=== PATIENT | female | born 1945 | race Caucasian/White ===

== ENCOUNTER 2019-01-13 10:00 | Day surgery (SDC) | payer MEDICARE, OTHER ==
[~2019-01-13 10:00] MED LIST: Lactated Ringers 1,000 ML IV SCH
[2019-01-13] MEDS ORDERED: fentaNYL 100 MCG/2 ML SDV ONE (13:05)
[2019-01-13] MEDS ORDERED: Propofol 200 MG/20 ML SDV ONE (13:05)
[2019-01-13] MEDS ORDERED: Midazolam 1 MG/ML 2 ML SDV ONE (13:05)
[2019-01-13] MEDS ORDERED: Ondansetron 4 MG/2 ML SDV ONE (13:05)
--- NOTE | 2019-01-13 14:00 | PCM.SN ---
- Free Text/Narrative Note: Patient was scheduled for a screening colonoscopy today. She had a pre- oeprative clearance performed by her PCP. When our anesthesiologist listened to her and appreciated a very significant cardiac murmur. She has not had an echo performed recently. They did not feel safe proceeding. Will arrange an appointment with our migration agent for a new echo and pre-operative clearance
== END 2019-01-13 13:45 | disposition home or self-care (01) ==
LOC: MW.SDS 10:00
PROVIDERS: ATTEND Surgery
DX: Z12.11 Encounter for screening for malignant neoplasm of colon (principal); R01.1 Cardiac murmur, unspecified; Z53.8 Procedure and treatment not carried out for other reasons
CPT/HCPCS: J2250; J2405; J2704; J3010; J7120

== ENCOUNTER 2020-04-04 15:40 | Observation (INO) | payer MEDICARE, OTHER ==
[2020-04-04] MEDS: Sodium Chloride 0.9% 1,000 ML IV SCH (16:31)
[2020-04-04] MEDS ORDERED: Rizatriptan Benzoate [Rizatriptan] 10 MG PO PRN (16:58)
--- NOTE | 2020-04-04 16:58 | PCM.HP.2 ---
H&P History of Present Illness - General Date of Service: 04/04/20 Admit Problem/Dx: Admission Diagnosis/Problem Admission Diagnosis/Problem Acute kidney injury - History of Present Illness Initial Comments - Free Text/Narative: Patient is a 75 y/o F with PMH of Cardiomyopathy, CHF, HTN, HLD, DVT. Afib who comes was sent in from her ase certified technician office today due to TIMA. Per patient she was switched from Lasix to torsemide for CHF in January, and today she went to see her ase certified technician and was told she needs to be admitted for abnormal kidney function, her sign maintenance imcreased from 1.5 to 3.0 in last 3 months. Patient denied any chest pain, N/V, dysuria, states she is making good amount of urine. Denied SOB, orthopnea, syncope, fall, abdominal pain, constipation, diarrhea, focal neurological deficits. Patient denied recent contrast administration or NSAIDs use. Her labs were reviewed showed sign maintenance of 3.0 and hypokalemia. Vitals were reassuring. Patient was admitted for further management of TIMA. - Related Data Allergies/Adverse Reactions: Allergies Allergy/AdvReac Type Severity Reaction Status Date / Time amoxicillin Allergy Rash Verified 04/04/20 17:22 Cephalosporins Allergy Rash Verified 04/04/20 17:22 pregabalin [From Lyrica] Allergy Rash Verified 04/04/20 17:22 Home Medications: Home Meds Albuterol [Proventil HFA] 1 - 2 puff INH ASDIRECTED PRN 01/10/19 [History] Apixaban [Eliquis] 5 mg PO BID 01/10/19 [History] Benzonatate [Tessalon Perle] 100 mg PO TID 01/10/19 [History] Gabapentin [Neurontin] 300 mg PO BID 01/10/19 [History] Mirtazapine 30 mg PO BEDTIME 01/10/19 [History] Pantoprazole Sodium 40 mg PO DAILY 01/10/19 [History] Potassium Chloride 10 meq PO DAILY 01/10/19 [History] Pramipexole Di-HCl [Pramipexole Dihydrochloride] 0.25 mg PO TID 01/10/19 [History] Rizatriptan Benzoate [Rizatriptan] 10 mg PO DAILY PRN 01/10/19 [History] atorvaSTATin Calcium [Atorvastatin Calcium] 10 mg PO BEDTIME 01/10/19 [History] fentaNYL [Duragesic] 1 patch TRDERM ASDIRECTED 01/10/19 [History] tiZANidine HCl [Tizanidine HCl] 1 tab PO DAILY 01/10/19 [History] Past Medical History HEENT History: Reports: Other (See Below) Other HEENT History: wears glasses Cardiovascular History: Reports: Afib, Blood Clots/VTE/DVT, Heart Murmur, High Cholesterol, Hypertension Other Cardiovascular History: hx DVT x 2 to 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 (first DVT after childbirth) Respiratory History: Reports: PE Other Respiratory History: occasional anxiety induced SOB -has prescribed inhaler Gastrointestinal History: Reports: GERD Genitourinary History: Reports: None SMOKE TESTER History: Reports: Musculoskeletal History: Reports: Arthritis, Back Pain, Chronic, Neck Pain, Chronic Other Musculoskeletal History: DEVON's to back and neck in [place] on occasion Neurological History: Reports: Migraines Psychiatric History: Reports: None Endocrine/Metabolic History: Reports: None Hematologic History: Reports: Anticoagulation Therapy Immunologic History: Reports: None Oncologic (Cancer) History: Reports: None Dermatologic History: Reports: None - Past Surgical History Head Surgeries/Procedures: Reports: None HEENT Surgical History: Reports: None Cardiovascular Surgical History: Reports: None Respiratory Surgical History: Reports: None GI Surgical History: Reports: None Female Surgical History: Reports: Hysterectomy Endocrine Surgical History: Reports: None Neurological Surgical History: Reports: None Musculoskeletal Surgical History: Reports: None Oncologic Surgical History: Reports: None Dermatological Surgical History: Reports: None H&P Review of Systems - Review of Systems: Review Of Systems: See Below General: Denies: Fever, Chills, Malaise HEENT: Denies: Dysphasia, Ear Pain Pulmonary: Denies: Shortness of Breath, Wheezing Cardiovascular: Denies: Chest Pain, Palpitations Gastrointestinal: Denies: Abdominal Pain, Anorexia, Black Stool, Difficulty Swallowing, Nausea, Vomiting Genitourinary: Denies: Dysuria, Frequency, Burning, Urgency, Retention, Discharge, Flank Pain Musculoskeletal: Denies: Neck Pain, Shoulder Pain, Arm Pain, Back Pain Skin: Denies: Cyanosis, Jaundice, Mottled Psychiatric: Denies: Confusion, Depression, Mood Lability Neurological: Denies: Confusion, Dizziness, Headache Exam - Exam Exam: See Below - Exam General: Alert, Oriented Neck: Supple, Trachea Midline Lungs: Clear to Auscultation, Normal Respiratory Effort Cardiovascular: Regular Rate, Regular Rhythm, Normal S1, Normal S2 GI/Abdominal Exam: Normal Bowel Sounds, Soft, Non-Tender Extremities: Normal Inspection, Normal Range of Motion, Pedal Edema Skin: Warm Neurological: Normal Speech, Normal Tone, Sensation Intact. No: Focal Deficit - Patient Data Lab Results Last 24 hrs: Laboratory Results - last 24 hr 04/04/20 Range/Units 16:00 SARS-CoV-2 RNA (RT-PCR) NEGATIVE (NEGATIVE) Sepsis Event Note - Focused Exam Date Exam was Performed: 04/04/20 Time Exam was Performed: 18:07 - Problem List (1) TIMA (acute kidney injury) SNOMED Code(s): 85807092, 81604201 ICD Code: N17.9 - ACUTE KIDNEY FAILURE, UNSPECIFIED Status: Acute Current Visit: Yes (2) Hypertrophic cardiomyopathy SNOMED Code(s): 698482581 ICD Code: I42.2 - OTHER HYPERTROPHIC CARDIOMYOPATHY Status: Acute Current Visit: Yes (3) HTN (hypertension) SNOMED Code(s): 69305365 ICD Code: I10 - ESSENTIAL (PRIMARY) HYPERTENSION Status: Acute Current Visit: Yes (4) Hyperlipemia SNOMED Code(s): 43649516 ICD Code: E78.5 - HYPERLIPIDEMIA, UNSPECIFIED Status: Acute Current Visit: Yes (5) DVT (deep venous thrombosis) SNOMED Code(s): 745800154 ICD Code: I82.409 - ACUTE EMBOLISM AND THOMBOS UNSP DEEP VN UNSP LOWER EXTREMITY Status: Acute Current Visit: Yes (6) Hypokalemia SNOMED Code(s): 90835358 ICD Code: E87.6 - HYPOKALEMIA Status: Acute Current Visit: Yes Problem List Initiated/Reviewed/Updated: Yes Orders Last 24hrs: Active Orders 24 hr Category Date Time Status Patient Status [ADT] Routine ADT 04/04/20 15:59 Active Oxygen Therapy [RC] PRN Care 04/04/20 15:59 Active Telemetry Monitoring [Cardiac Monitoring] [RC] Q8H Care 04/04/20 16:01 Active VTE/DVT Education [RC] PER UNIT ROUTINE Care 04/04/20 15:59 Active Vital Signs [RC] Q4H Care 04/04/20 15:59 Active Heart Healthy Diet [DIET] Diet 04/04/20 Dinner Active BASIC METABOLIC PANEL,BMP [CHEM] AM Lab 04/05/20 05:11 Ordered Sodium Chloride 0.9% [Normal Saline] 1,000 ml Med 04/04/20 16:00 Active IV Q10H Resuscitation Status Routine Resus Stat 04/04/20 15:59 Ordered Medication Orders Sodium Chloride (Normal Saline) 1,000 mls @ 100 mls/hr IV Q10H [facility] Stop: 04/05/20 11:59 Last Admin: 04/04/20 16:31 Dose: 100 mls/hr Documented by: NUHA Assessment/Plan Comment:: 75 y/o F admitted fro TIMA, Hypokalemia Admit to observation, tele TIMA pre-renal vs progression of CKD Obtain Urine electrolytes Start IV fluids, LR running @ 100 cc/hr, total 2L Replete K Resume home meds as appropriate Hold losartan and Torsemide Avoid nephrotoxic agents Recheck BMP in AM Cardiac diet SCD for DVT ppx
[2020-04-04] MEDS ORDERED: FENTANYL 37.5 MCG/HR TRDERM SCH (17:00)
[2020-04-04] MEDS ORDERED: Potassium Chloride Riders 40 MEQ in Premix Bag 1 BAG IV ONE (18:13)
[2020-04-04] MEDS ORDERED: Acetaminophen 325 MG Tab PO PRN (18:56)
[2020-04-04] MEDS: Gabapentin 300 MG Cap PO SCH (20:43)
[2020-04-04] MEDS: Apixaban 5 MG Tab PO SCH (20:43)
[2020-04-04] MEDS ORDERED: Mirtazapine 30 MG Tab PO SCH (21:00)
[2020-04-04] MEDS ORDERED: atorvaSTATin 10 MG Tab PO SCH (21:00)
[2020-04-04] MEDS: Benzonatate 100 MG Cap PO SCH (22:16)
[2020-04-04] MEDS: Pramipexole 0.25 MG Tab PO SCH (22:16)
[2020-04-05] MEDS: Sodium Chloride 0.9% 1,000 ML IV SCH (02:15)
[2020-04-05] MEDS ORDERED: Glucagon,Human Recombinant 1 MG Vial IVPUSH ONE (05:17)
[2020-04-05 06:24] LABS: CARBON DIOXIDE,CO2 27.7 mmol/L (21.0-32.0); POTASSIUM,K 3.2 mmol/L (3.5-5.1)
[2020-04-05] MEDS: Pramipexole 0.25 MG Tab PO SCH (06:42)
[2020-04-05] MEDS: Benzonatate 100 MG Cap PO SCH (06:42)
[2020-04-05] MEDS ORDERED: Pantoprazole 40 MG Tab.CR PO SCH (07:30)
[2020-04-05] MEDS: Gabapentin 300 MG Cap PO SCH (08:46)
[2020-04-05] MEDS: Apixaban 5 MG Tab PO SCH (08:51)
[2020-04-05] MEDS ORDERED: Potassium Chloride 10% 20 MEQ/15 ML Soln 30 ML UD Cup PO ONE (09:00)
[2020-04-05] MEDS ORDERED: TIZANIDINE HCL 4 MG PO SCH ×2 (09:00→21:00)
--- NOTE | 2020-04-05 09:18 | PCM.DCSUM1 ---
Discharge Summary - Hospital Course Free Text/Narrative:: Patient is a 75 y/o F with PMH of Cardiomyopathy, CHF, HTN, HLD, DVT. Afib who comes was sent in from her softball core molder office today due to TIMA. Per patient she was switched from Lasix to torsemide for CHF in January, and today she went to see her softball core molder and was told she needs to be admitted for abnormal kidney function, her motion picture camera operator imcreased from 1.5 to 3.0 in last 3 months. Patient denied any chest pain, N/V, dysuria, states she is making good amount of urine. Denied SOB, orthopnea, syncope, fall, abdominal pain, constipation, diarrhea, focal neurological deficits. Patient denied recent contrast administration or NSAIDs use. Her labs were reviewed showed motion picture camera operator of 3.0 and hypokalemia. Vitals were reassuring. Patient was admitted for further management of TIMA. Patient was started on iv fluids, her potassium was repleted, her losartan and torsemide were held, telemetry was unremarkable overnight, next am patients creatinine improved to 1.3, electrolytes were repleted, Her losartan was stopped and torsemide was decreased to 20 mg upon her softball core molder recommendations. patient was hemodynamically stable for dc and recommended to fu with her pcp on outpatient basis. - Discharge Data Discharge Date: 04/05/20 Discharge Disposition: Home, Self-Care 01 Condition: Good - Referral to Home Health Primary Care Physician: James David MD - Discharge Diagnosis/Problem(s) (1) TIMA (acute kidney injury) SNOMED Code(s): 91331476, 47737975 ICD Code: N17.9 - ACUTE KIDNEY FAILURE, UNSPECIFIED Status: Acute (2) Hypertrophic cardiomyopathy SNOMED Code(s): 840754886 ICD Code: I42.2 - OTHER HYPERTROPHIC CARDIOMYOPATHY Status: Acute (3) HTN (hypertension) SNOMED Code(s): 14082342 ICD Code: I10 - ESSENTIAL (PRIMARY) HYPERTENSION Status: Acute (4) Hyperlipemia SNOMED Code(s): 55282794 ICD Code: E78.5 - HYPERLIPIDEMIA, UNSPECIFIED Status: Acute (5) DVT (deep venous thrombosis) SNOMED Code(s): 231873472 ICD Code: I82.409 - ACUTE EMBOLISM AND THOMBOS UNSP DEEP VN UNSP LOWER EXTREMITY Status: Acute (6) Hypokalemia SNOMED Code(s): 14778282 ICD Code: E87.6 - HYPOKALEMIA Status: Acute - Discharge Plan Prescriptions/Med Rec: Potassium Chloride 15 meq PO DAILY 15 Days #15 tab Home Medications: Home Meds Albuterol [Proventil HFA] 1 - 2 puff INH QID PRN 01/10/19 [History] Apixaban [Eliquis] 5 mg PO BID 01/10/19 [History] Benzonatate [Tessalon Perle] 100 mg PO TID PRN 01/10/19 [History] Gabapentin [Neurontin] 300 mg PO BID 01/10/19 [History] Mirtazapine 30 mg PO BEDTIME 01/10/19 [History] Pantoprazole Sodium 40 mg PO DAILY 01/10/19 [History] Pramipexole Di-HCl [Pramipexole Dihydrochloride] 0.75 mg PO BEDTIME 01/10/19 [History] Rizatriptan Benzoate [Rizatriptan] 10 mg PO DAILY PRN 01/10/19 [History] atorvaSTATin Calcium [Atorvastatin Calcium] 10 mg PO BEDTIME 01/10/19 [History] tiZANidine HCl [Tizanidine HCl] 4 mg PO BEDTIME 01/10/19 [History] Acetaminophen [Tylenol Extra Strength] 1,000 mg PO TID PRN 04/05/20 [History] Acyclovir 400 mg PO BID 04/05/20 [History] Diclofenac Sodium 75 mg PO BID PRN 04/05/20 [History] Docusate Sodium 100 mg PO BID 04/05/20 [History] Mupirocin Oint [Bactroban Oint] 1 applic TOP TID 04/05/20 [History] Patient's Own Medication [Ptom] 1 each TRDERM Q72H each 04/05/20 [Rx] Potassium Chloride 15 meq PO DAILY 15 Days #15 tab 04/05/20 [Rx] Torsemide 20 mg PO DAILY #0 04/05/20 [Rx] dilTIAZem HCL [Dilt-Xr] 240 mg PO DAILY 04/05/20 [History] fentaNYL [Duragesic] 37.5 mcg TD Q72H 04/05/20 [History] Patient Handouts: Acute Kidney Injury, Adult, Potassium chloride oral solution, syrup, or powder for solution Referrals: Deeprasertkul,Peerawut, MD [Physician] - 04/19/20 4:00 pm (Arrive 15 minutes early with a photo ID, insurance card, and a mask. ) - Discharge Summary/Plan Comment DC Time >30 min.: No - Patient Data Vitals - Most Recent: Last Vital Signs Temp 37.0 C 04/05/20 08:00 Pulse 73 04/05/20 08:00 Resp 14 04/05/20 08:00 BP 135/62 04/05/20 08:00 Pulse Ox 98 04/05/20 08:00 Weight - Most Recent: 77.1 kg I&O - Last 24 hours: Intake & Output 04/04/20 04/05/20 04/05/20 22:59 06:59 14:59 Intake Total 1903 Output Total 800 Balance 1103 Lab Results - Last 24 hrs: Laboratory Results - last 24 hr 04/04/20 04/04/20 04/05/20 Range/Units 16:00 20:10 05:55 Sodium 141 (136-145) mmol/L Potassium 3.2 L (3.5-5.1) mmol/L Chloride 105 (98-107) mmol/L Carbon Dioxide 27.7 (21.0-32.0) mmol/L BUN 32 H (7.0-18.0) mg/dL Creatinine 1.3 H (0.6-1.0) mg/dL Est Cr Clr Drug Dosing 36.08 mL/min Estimated GFR (MDRD) 40.2 ml/min Glucose 100 (74-106) mg/dL Calcium 7.7 L (8.5-10.1) mg/dL Magnesium (1.8-2.4) mg/dL Ur Random Sodium 22.0 L (40.0-220.0) mmol/L Ur Random Potassium 15.9 mmol/L Ur Random Chloride 35 mmol/L SARS-CoV-2 RNA (RT-PCR) NEGATIVE (NEGATIVE) 04/05/20 Range/Units 05:55 Sodium (136-145) mmol/L Potassium (3.5-5.1) mmol/L Chloride (98-107) mmol/L Carbon Dioxide (21.0-32.0) mmol/L BUN (7.0-18.0) mg/dL Creatinine (0.6-1.0) mg/dL Est Cr Clr Drug Dosing mL/min Estimated GFR (MDRD) ml/min Glucose (74-106) mg/dL Calcium (8.5-10.1) mg/dL Magnesium 1.9 (1.8-2.4) mg/dL Ur Random Sodium (40.0-220.0) mmol/L Ur Random Potassium mmol/L Ur Random Chloride mmol/L SARS-CoV-2 RNA (RT-PCR) (NEGATIVE) Med Orders - Current: Current Medications Acetaminophen (Tylenol) 650 mg PO Q6H PRN PRN Reason: Pain Last Admin: 04/04/20 20:11 Dose: 650 mg Documented by: Gabapentin (Neurontin) 300 mg PO BID [facility] Last Admin: 04/05/20 08:46 Dose: 300 mg Documented by: Sodium Chloride (Normal Saline) 1,000 mls @ 100 mls/hr IV Q10H [facility] Stop: 04/05/20 11:59 Last Admin: 04/05/20 02:15 Dose: 100 mls/hr Documented by: Apixaban 5 Mg Tab 5 each PO BID [facility] Last Admin: 04/05/20 08:51 Dose: 5 each Documented by: Atorvastatin 10 Mg (Tab) 1 each PO BEDTIME [facility] Last Admin: 04/04/20 20:44 Dose: 1 each Documented by: Benzonatate 100 Mg (Cap) 1 each PO TID [facility] Last Admin: 04/05/20 06:42 Dose: 1 each Documented by: Fentanyl 37.5 Mcg/Hr (Transdermal Patch) 1 each TRDERM Q72H [facility] Last Admin: 04/04/20 17:43 Dose: 1 each Documented by: Mirtazapine 30 Mg (Tab) 1 each PO BEDTIME [facility] Last Admin: 04/04/20 20:44 Dose: 1 each Documented by: Pantoprazole 40 Mg (Tab.Cr) 1 each PO ACBREAKFAST [facility] Last Admin: 04/05/20 06:42 Dose: 1 each Documented by: Pramipexole 0.25 Mg (Tab) 1 each PO TID [facility] Last Admin: 04/05/20 06:42 Dose: 1 each Documented by: Rizatriptan Benzoate ([Rizatriptan] 10 Mg) 1 each PO DAILY PRN PRN Reason: Headache Tizanidine Hcl [ (Tizanidine Hcl] 4mg) 2 - 4 each PO BID [facility] Discontinued Medications Potassium Chloride 40 meq/ (Premix) 100 mls @ 25 mls/hr IV ONETIME ONE Stop: 04/04/20 22:12 Last Admin: 04/04/20 18:54 Dose: 25 mls/hr Documented by: Potassium Chloride (Potassium Chloride) 40 meq PO ONETIME ONE Stop: 04/05/20 09:01
[2020-04-05] MEDS ORDERED: Apixaban 5 MG Tab PO SCH (09:30)
[2020-04-05] MEDS ORDERED: Potassium Chloride 20 MEQ Tab.ER PO ONE (09:45)
[2020-04-05] MEDS ORDERED: Pramipexole 0.25 MG Tab PO SCH (21:00)
== END 2020-04-05 12:53 | disposition home or self-care (01) ==
LOC: MW.MS 15:40
PROVIDERS: ADMIT Student in an Organized Health Care Education/Training Program; ATTEND Student in an Organized Health Care Education/Training Program
DX: N17.9 Acute kidney failure, unspecified (principal); I11.0 Hypertensive heart disease with heart failure; I50.9 Heart failure, unspecified; K21.9 Gastro-esophageal reflux disease without esophagitis; I42.2 Other hypertrophic cardiomyopathy; E78.5 Hyperlipidemia, unspecified; E78.00 Pure hypercholesterolemia, unspecified; E87.6 Hypokalemia; Z20.828 Contact with and (suspected) exposure to other viral communicable diseases; Z86.718 Personal history of other venous thrombosis and embolism; Z88.0 Allergy status to penicillin; Z88.1 Allergy status to other antibiotic agents; Z88.8 Allergy status to other drugs, medicaments and biological substances; Z79.899 Other long term (current) drug therapy
CPT/HCPCS: 36415; 80048; 82436; 83735; 84133; 84300; 96361; 96365; 96366; A9270-GY; G0378; G0379; J3480; J7030; U0002

== ENCOUNTER 2020-08-31 21:45 | Emergency (ER) | payer MEDICARE, OTHER ==
[2020-08-31] MEDS ORDERED: Sodium Chloride 0.9% 2.5 ML Syringe FLUSH PRN (22:00)
[2020-08-31] MEDS ORDERED: Sodium Chloride 0.9% 10 ML Syringe FLUSH PRN (22:00)
--- NOTE | 2020-08-31 22:10 | EDM.PDOC ---
ED HPI GENERAL MEDICAL PROBLEM - General Chief Complaint: Skin Complaint Stated Complaint: POSSIBLE INFECTION OF LEG ULCER Time Seen by Provider: 08/31/20 21:51 - History of Present Illness INITIAL COMMENTS - FREE TEXT/NARRATIVE: History of present illness: [] The patient began to have some discomfort in her right lower extremity about a week ago. 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 The patient has swelling and pain that got worse the last 2 days. Over the past week she has a little skin ulcer in the medial ankle. She started putting a Band-Aid on it for 2 to 3 days and gets purulent material when she removes the Band-Aid. The patient has fever and chills but this is a subjective finding with no documented fever. The patient does not have any other significant symptoms. Not diabetic and does not smoke. Review of systems: As per history of present illness and below otherwise all systems reviewed and negative. Past medical history: As per history of present illness and as reviewed below otherwise noncontributory. Surgical history: As per history of present illness and as reviewed below otherwise noncontributory. Social history: No reported history of drug or alcohol abuse. Family history: As per history of present illness and as reviewed below otherwise noncontributory. Physical exam: Constitutional - well developed, well-nourished and in no acute distress HEENT - normocephalic, no evidence of trauma - external nose and mouth normal - no mass in neck and no JVD - mucosae moist EYES - full EOM, PERRL, no icterus - no evidence of inflammation, injection, or drainage Respiratory - no respiratory distress, equal bilateral expansion, lungs clear to auscultation and no abnormal lung sounds Cardiovascular - Regular Rhythm with S1 and S2 appreciated and no murmur, gallop or rub. Patient has significant superficial varicose veins in both lower extremities below the lower third of the leg GI - abdomen soft without distension or organomegaly - normal bowel sounds - no guard or rebound Musculoskeletal no gross deformity of long bones or joints -there is tenderness of the distal mostly medially and posteriorly. There is tenderness around the ankle and foot. She has a 1 cm circular ulcer over the medial malleolus. It appears clean and not draining at this point. Neurologic - Alert and oriented times four - CN II-XII grossly intact - motor sensory and coordination symmetrically normal Psychiatric - appropriate mood and affect with normal thought content Hematologic - No petechiae or purpura - mucosa appropriate color and sclera not pale - normal nail bed color and refill Integument -skin is warm about the left lower extremity from the lower third of the leg down to the foot. Otherwise no rash or evidence of trauma - normal turgor Diagnostics: [] Therapeutics: [] Impression: [] Plan: [] Definitive disposition and diagnosis as appropriate pending reevaluation and review of above. right ankle Pain Score (Numeric/FACES): 7 - Related Data Allergies Allergy/AdvReac Type Severity Reaction Status Date / Time amoxicillin Allergy Rash Verified 08/31/20 21:53 Cephalosporins Allergy Rash Verified 08/31/20 21:53 pregabalin [From Lyrica] Allergy Rash Verified 08/31/20 21:53 Home Meds: Home Meds Albuterol [Proventil HFA] 1 - 2 puff INH QID PRN 01/10/19 [History] Apixaban [Eliquis] 5 mg PO BID 01/10/19 [History] Benzonatate [Tessalon Perle] 100 mg PO TID PRN 01/10/19 [History] Gabapentin [Neurontin] 300 mg PO BID 01/10/19 [History] Mirtazapine 30 mg PO BEDTIME 01/10/19 [History] Pantoprazole Sodium 40 mg PO DAILY 01/10/19 [History] Rizatriptan Benzoate [Rizatriptan] 10 mg PO DAILY PRN 01/10/19 [History] atorvaSTATin Calcium [Atorvastatin Calcium] 10 mg PO BEDTIME 01/10/19 [History] tiZANidine HCl [Tizanidine HCl] 2 mg PO BID 01/10/19 [History] Acetaminophen [Tylenol Extra Strength] 1,000 mg PO TID PRN 04/05/20 [History] Acyclovir 400 mg PO BID 04/05/20 [History] Docusate Sodium 100 mg PO BID 04/05/20 [History] Mupirocin Oint [Bactroban Oint] 1 applic TOP TID 04/05/20 [History] Potassium Chloride 15 meq PO DAILY 15 Days #15 tab 04/05/20 [Rx] dilTIAZem HCL [Dilt-Xr] 240 mg PO DAILY 04/05/20 [History] fentaNYL [Duragesic] 37.5 mcg TD Q72H 04/05/20 [History] Clindamycin HCl 300 mg PO TID #30 capsule 08/31/20 [Rx] Denosumab [Prolia] 60 mg .XX ASDIRECTED 08/31/20 [History] Torsemide 30 mg PO DAILY 08/31/20 [History] Past Medical History HEENT History: Reports: Other (See Below) Other HEENT History: wears glasses Cardiovascular History: Reports: Afib, Blood Clots/VTE/DVT, Heart Murmur, High Cholesterol, Hypertension Other Cardiovascular History: hx DVT x 2 to 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 (first DVT after childbirth) Respiratory History: Reports: PE Other Respiratory History: occasional anxiety induced SOB -has prescribed inhaler Gastrointestinal History: Reports: GERD Genitourinary History: Reports: None [employer] History: Reports: Musculoskeletal History: Reports: Arthritis, Back Pain, Chronic, Neck Pain, Chronic Other Musculoskeletal History: DEVON's to back and neck in [place] on occasion Neurological History: Reports: Migraines Psychiatric History: Reports: None Endocrine/Metabolic History: Reports: None Hematologic History: Reports: Anticoagulation Therapy Immunologic History: Reports: None Oncologic (Cancer) History: Reports: None Dermatologic History: Reports: None - Infectious Disease History Infectious Disease History: Reports: Chicken Pox, Measles Other Infectious Disease History: As a child - Past Surgical History Head Surgeries/Procedures: Reports: None HEENT Surgical History: Reports: None Cardiovascular Surgical History: Reports: None Respiratory Surgical History: Reports: None GI Surgical History: Reports: None Female Surgical History: Reports: Hysterectomy Endocrine Surgical History: Reports: None Neurological Surgical History: Reports: None Musculoskeletal Surgical History: Reports: None Oncologic Surgical History: Reports: None Dermatological Surgical History: Reports: None Social & Family History - Family History Family Medical History: No Pertinent Family History Cardiac: Reports: [place] Other Cardiac Family History: Patient's father Endocrine/Metabolic: Reports: Diabetes, type II Other Endocrine/Metabolic Family History: Patient's maternal grandfather - Tobacco Use Tobacco Use Status *Q: Never Tobacco User - Caffeine Use Caffeine Use: Reports: Coffee - Recreational Drug Use Recreational Drug Use: No ED ROS GENERAL - Review of Systems Review Of Systems: Comprehensive ROS is negative, except as noted in HPI. ED EXAM, SKIN/RASH Exam: See Below Text/Narrative:: The physical exam is in the HPI Course - Vital Signs Last Recorded V/S: Last Vital Signs Temp 36.2 C 08/31/20 22:16 Pulse 66 08/31/20 22:16 Resp 18 08/31/20 22:16 BP 197/80 H 08/31/20 22:16 Pulse Ox 98 08/31/20 22:16 - Orders/Labs/Meds Orders: Active Orders 24 hr Category Date Time Status Venous Doppler Lwr Ext Rt [US] Stat Exams 08/31/20 22:00 Ordered CULTURE BLOOD [BC] Stat Lab 08/31/20 22:08 Received CULTURE BLOOD [BC] Stat Lab 08/31/20 22:21 Received Sodium Chloride 0.9% [Saline Flush] Med 08/31/20 22:00 Active 10 ml FLUSH ASDIRECTED PRN Sodium Chloride 0.9% [Saline Flush] Med 08/31/20 22:00 Active 2.5 ml FLUSH ASDIRECTED PRN Blood Culture x2 Reflex Set [OM.PC] Stat Oth 08/31/20 22:00 Ordered Saline Lock Insert [OM.PC] Stat Oth 08/31/20 22:00 Ordered Medication Orders Sodium Chloride (Saline Flush) 10 ml FLUSH ASDIRECTED PRN PRN Reason: Keep Vein Open Last Admin: 08/31/20 22:32 Dose: 10 ml Documented by: MAICO Sodium Chloride (Saline Flush) 2.5 ml FLUSH ASDIRECTED PRN PRN Reason: Keep Vein Open Last Admin: 08/31/20 22:33 Dose: 2.5 ml Documented by: MAICO Labs: Laboratory Tests 08/31/20 08/31/20 Range/Units 22:08 22:08 WBC 4.00 (4.0-11.0) K/uL RBC 3.63 L (4.30-5.90) M/uL Hgb 10.3 L (12.0-16.0) g/dL Hct 32.8 L (36.0-46.0) % MCV 90.4 (80.0-98.0) fL MCH 28.4 (27.0-32.0) pg MCHC 31.4 (31.0-37.0) g/dL RDW Std Deviation 49.1 (28.0-62.0) fl RDW Coeff of Fatou 15 (11.0-15.0) % Plt Count 246 (150-400) K/uL MPV 10.00 (7.40-12.00) fL Neut % (Auto) 66.4 (48.0-80.0) % Lymph % (Auto) 23.0 (16.0-40.0) % [place] % (Auto) 8.8 (0.0-15.0) % Eos % (Auto) 1.5 (0.0-7.0) % Baso % (Auto) 0.3 (0.0-1.5) % Neut # (Auto) 2.7 (1.4-5.7) K/uL Lymph # (Auto) 0.9 (0.6-2.4) K/uL [place] # (Auto) 0.4 (0.0-0.8) K/uL Eos # (Auto) 0.1 (0.0-0.7) K/uL Baso # (Auto) 0.0 (0.0-0.1) K/uL Nucleated RBC % 0.0 /100WBC Nucleated RBCs # 0 K/uL Sodium 139 (136-145) mmol/L Potassium 3.9 (3.5-5.1) mmol/L Chloride 107 (98-107) mmol/L Carbon Dioxide 26.5 (21.0-32.0) mmol/L BUN 15 (7.0-18.0) mg/dL Creatinine 1.3 H (0.6-1.0) mg/dL Est Cr Clr Drug Dosing 36.08 mL/min Estimated GFR (MDRD) 40.2 ml/min Glucose 107 H (74-106) mg/dL Calcium 9.3 (8.5-10.1) mg/dL Total Bilirubin 0.3 (0.2-1.0) mg/dL AST 23 (15-37) IU/L ALT 27 (14-63) IU/L Alkaline Phosphatase 71 (46-116) U/L Total Protein 6.8 (6.4-8.2) g/dL Albumin 3.6 (3.4-5.0) g/dL Globulin 3.2 (2.6-4.0) g/dL Albumin/Globulin Ratio 1.1 (0.9-1.6) Meds: Medications Generic Name Dose Route Start Last Admin Trade Name Freq PRN Reason Stop Dose Admin Sodium Chloride 10 ml 08/31/20 22:00 08/31/20 22:32 Saline Flush FLUSH 10 ml ASDIRECTED PRN Administration Keep Vein Open Sodium Chloride 2.5 ml 08/31/20 22:00 08/31/20 22:33 Saline Flush FLUSH 2.5 ml ASDIRECTED PRN Administration Keep Vein Open Discontinued Medications Generic Name Dose Route Start Last Admin Trade Name Laury PRN Reason Stop Dose Admin Hydrocodone Bitart/Acetaminophen 1 tab 08/31/20 22:21 08/31/20 22:30 Delight 325-7.5 Mg PO 08/31/20 22:22 1 tab STAT STA Administration Clindamycin Phosphate 300 mg/ 52 mls @ 100 mls/hr 08/31/20 22:06 08/31/20 22:26 Sodium Chloride IV 08/31/20 22:37 Not Given ONETIME ONE Clindamycin Phosphate 300 mg/ 50 mls @ 150 mls/hr 08/31/20 22:19 08/31/20 22:21 Premix IV 08/31/20 22:38 150 mls/hr ONETIME ONE Administration Clindamycin Phosphate Confirm 08/31/20 22:19 08/31/20 22:25 Cleocin In D5w Administered 08/31/20 22:20 Not Given Dose 50 mls @ as directed IV .STK-MED ONE Departure - Departure Time of Disposition: 23:59 Disposition: Home, Self-Care 01 Condition: Good Clinical Impression: Cellulitis - Discharge Information Prescriptions: Clindamycin HCl 300 mg PO TID #30 capsule Instructions: Cellulitis, Adult Referrals: James David MD [Primary Care Provider] - Forms: ED Department Discharge Additional Instructions: [facility] - Primary Care [address] [place] [address] [id number] [address] [id number] The following information is given to patients seen in the emergency department who are being discharged to home. This information is to outline your options for follow-up care. We provide all patients seen in our emergency department with a follow-up referral. The need for follow-up, as well as the timing and circumstances, are variable depending upon the specifics of your emergency department visit. If you don't have a primary care physician on staff, we will provide you with a referral. We always advise you to contact your personal physician following an emergency department visit to inform them of the circumstance of the visit and for follow-up with them and/or the need for any referrals to a consulting specialist. The emergency department will also refer you to a specialist when appropriate. This referral assures that you have the opportunity for follow-up care with a specialist. All of these measure are taken in an effort to provide you with optimal care, which includes your follow-up. Under all circumstances we always encourage you to contact your private physician who remains a resource for coordinating your care. When calling for follow-up care, please make the office aware that this follow-up is from your recent emergency room visit. If for any reason you are refused follow-up, please contact the [facility] Emergency Department at and asked to speak to the emergency department charge nurse. Sepsis Event Note (ED) - Evaluation Sepsis Screening Result: No Definite Risk - Focused Exam Vital Signs: Vital Signs Temp Pulse Resp BP Pulse Ox 08/31/20 22:16 36.2 C 66 18 197/80 H 98 08/31/20 21:53 36.4 C 73 18 217/85 H 96 - My Orders Last 24 Hours: My Active Orders 08/31/20 22:00 Venous Doppler Lwr Ext Rt [US] Stat Sodium Chloride 0.9% [Saline Flush] 10 ml FLUSH ASDIRECTED PRN Sodium Chloride 0.9% [Saline Flush] 2.5 ml FLUSH ASDIRECTED PRN Blood Culture x2 Reflex Set [OM.PC] Stat Saline Lock Insert [OM.PC] Stat 08/31/20 22:08 CULTURE BLOOD [BC] Stat 08/31/20 22:21 CULTURE BLOOD [BC] Stat - Assessment/Plan Last 24 Hours: My Active Orders 08/31/20 22:00 Venous Doppler Lwr Ext Rt [US] Stat Sodium Chloride 0.9% [Saline Flush] 10 ml FLUSH ASDIRECTED PRN Sodium Chloride 0.9% [Saline Flush] 2.5 ml FLUSH ASDIRECTED PRN Blood Culture x2 Reflex Set [OM.PC] Stat Saline Lock Insert [OM.PC] Stat 08/31/20 22:08 CULTURE BLOOD [BC] Stat 08/31/20 22:21 CULTURE BLOOD [BC] Stat
[2020-08-31] MEDS ORDERED: Clindamycin Phosphate in D5W 300 MG in Premix Bag 1 BAG IV ONE ×2 (22:19)
[2020-08-31] MEDS ORDERED: Clindamycin Phosphate in D5W 50 ML IV ONE (22:19)
[2020-08-31] MEDS ORDERED: Acetaminophen/HYDROcodone 325-7.5 MG Tab PO STA (22:21)
[2020-08-31 22:38] LABS: CARBON DIOXIDE,CO2 26.5 mmol/L (21.0-32.0); POTASSIUM,K 3.9 mmol/L (3.5-5.1)
--- NOTE | 2020-09-01 00:20 | US ---
INDICATION: SWELLING RIGHT LOWER EXAM, HX OF DVT IN THE PAST, LAST DVT 1991, PATIENT IS ON A BLOOD THINER AT THIS TIME TECHNIQUE: Ultrasound venous duplex right lower extremity. COMPARISON: None. FINDINGS: The right common femoral, superficial femoral, deep femoral, popliteal, posterior tibial, and greater saphenous veins are fully compressible with normal waveforms. IMPRESSION: Normal ultrasound of the right lower extremity veins. Dictated by: Cash Martines MD @ 09/01/2020 00:19:02 (Electronically Signed)
== END 2020-09-01 00:35 | disposition home or self-care (01) ==
LOC: MW.ED 21:45
DX: L03.115 Cellulitis of right lower limb (principal); I10 Essential (primary) hypertension; E78.00 Pure hypercholesterolemia, unspecified; I48.91 Unspecified atrial fibrillation; K21.9 Gastro-esophageal reflux disease without esophagitis; M19.90 Unspecified osteoarthritis, unspecified site; Z86.711 Personal history of pulmonary embolism; Z86.718 Personal history of other venous thrombosis and embolism; Z88.1 Allergy status to other antibiotic agents; Z88.8 Allergy status to other drugs, medicaments and biological substances; Z79.01 Long term (current) use of anticoagulants; Z79.899 Other long term (current) drug therapy
CPT/HCPCS: 36415; 80053; 85025; 87040; 93971; 96365; 99284; A9270; J3490; 99283

== ENCOUNTER 2022-01-21 17:57 | Emergency (ER) | payer MEDICARE, OTHER ==
[2022-01-21] MEDS ORDERED: Sodium Chloride 0.9% 1,000 ML IV ONE (18:12)
[2022-01-21] MEDS ORDERED: Sodium Chloride 0.9% 2.5 ML Syringe FLUSH PRN (18:12)
[2022-01-21] MEDS ORDERED: Sodium Chloride 0.9% 10 ML Syringe FLUSH PRN (18:12)
[2022-01-21] MEDS ORDERED: Morphine 2 MG/ML SYRINGE IVPUSH ONE (18:22)
[2022-01-21] MEDS ORDERED: Clindamycin HCl 150 MG Cap PO ONE (18:48)
[2022-01-21] MEDS ORDERED: Acetaminophen/HYDROcodone 325-5 MG Tab PO ONE ×2 (18:49→20:21)
[2022-01-21 18:55] LABS: CARBON DIOXIDE,CO2 27.2 mmol/L (21.0-32.0); POTASSIUM,K 3.6 mmol/L (3.5-5.1)
== END 2022-01-21 21:15 | disposition home or self-care (01) ==
LOC: MW.ED 17:57
DX: I83.029 Varicose veins of left lower extremity with ulcer of unspecified site (principal); L97.929 Non-pressure chronic ulcer of unspecified part of left lower leg with unspecified severity; L03.116 Cellulitis of left lower limb; I48.91 Unspecified atrial fibrillation; K21.9 Gastro-esophageal reflux disease without esophagitis; E78.00 Pure hypercholesterolemia, unspecified; I10 Essential (primary) hypertension; Z88.0 Allergy status to penicillin; Z88.8 Allergy status to other drugs, medicaments and biological substances; Z79.01 Long term (current) use of anticoagulants; Z79.899 Other long term (current) drug therapy; Z86.718 Personal history of other venous thrombosis and embolism
CPT/HCPCS: 36415; 73590; 80053; 83605; 85025; 85610; 96374; 99283; A9270; J2270; J3490; J7030

== ENCOUNTER 2023-10-16 11:25 | Emergency (ER) | payer MEDICARE, OTHER ==
[2023-10-16] MEDS ORDERED: Sodium Chloride 0.9% 2.5 ML Syringe FLUSH PRN (11:30)
[2023-10-16] MEDS ORDERED: Sodium Chloride 0.9% 10 ML Syringe FLUSH PRN (11:30)
[2023-10-16] MEDS ORDERED: Sodium Chloride 0.9% 1,000 ML IV STA (11:36)
[2023-10-16] MEDS ORDERED: Ondansetron 4 MG/2 ML SDV IVPUSH STA (11:36)
[2023-10-16 12:01] LABS: BASOPHILS ABSOLUTE AUTO 0.01 K/uL (0.00-0.20); BASOPHILS PERCENT AUTO 0.2 % (0.0-1.0); EOSINOPHILS ABSOLUTE AUTO 0.01 K/uL (0.00-0.45); EOSINOPHILS PERCENT AUTO 0.2 % (0.0-6.0); HEMATOCRIT 37.8 % (37.0-47.0); HEMOGLOBIN 12.2 g/dL (12.0-16.0); IMMATURE GRAN ABSOLUTE AUTO 0.04 K/uL (0.00-0.05); IMMATURE GRAN PERCENT AUTO 0.8 % (0.0-0.4); LYMPHOCYTES ABSOLUTE AUTO 0.45 K/uL (1.00-4.80); LYMPHOCYTES PERCENT AUTO 8.7 % (24.0-44.0); MEAN CORPUSCULAR HEMOGLOBIN 26.9 pg (28.0-32.0); MEAN CORPUSCULAR HGB CONC 32.3 g/dL (32.0-36.0); MEAN CORPUSCULAR VOLUME 83.3 fL (83.0-99.0); MEAN PLATELET VOLUME 9.8 fL (9.4-12.3); MONOCYTES ABSOLUTE AUTO 0.63 K/uL (0.00-0.80); MONOCYTES PERCENT AUTO 12.2 % (0.0-8.0); NEUTROPHILS ABSOLUTE AUTO 4.01 K/uL (1.80-7.70); NEUTROPHILS PERCENT AUTO 77.9 % (41.0-71.0); PLATELET COUNT,PLT 337 K/uL (150-400); RED BLOOD CELL COUNT 4.54 M/uL (4.10-5.30); WHITE BLOOD CELL COUNT,WBC 5.15 K/uL (3.9-11.3)
[2023-10-16 12:19] LABS: INR 1.25 (0.86-1.11); PTT,PARTIAL THROMBOPLSTIN TIME 31.9 SEC (23.9-30.7)
[2023-10-16 12:24] LABS: ALBUMIN 3.5 g/dL (3.4-5.0); BILIRUBIN TOTAL 1.1 mg/dL (0.2-1.0); CARBON DIOXIDE,CO2 25.7 mmol/L (21.0-32.0); CREATININE 2.2 mg/dL (0.6-1.0); EST CRCL DRUG DOSING (CG) 18.79 mL/min; POTASSIUM,K 4.5 mmol/L (3.5-5.1); PROTEIN TOTAL,TP 7.1 g/dL (6.4-8.2)
[2023-10-16 12:43] LABS: CORONAVIRUS COVID-19 NAA NEGATIVE (NEGATIVE); INFLUENZA A NAA NEGATIVE (NEGATIVE); INFLUENZA B NAA NEGATIVE (NEGATIVE); RESPIRATORY SYNCYTIAL VIR NAA NEGATIVE (NEGATIVE)
[2023-10-16] MEDS ORDERED: Promethazine 25 MG/ML SDV IM STA (13:24)
[2023-10-16 13:32] LABS: APPEARANCE,URINE CLEAR; BILIRUBIN,URINE NEGATIVE (NEGATIVE); COLOR,URINE YELLOW; GLUCOSE,URINE NEGATIVE (NEGATIVE); KETONES,URINE TRACE mg/dL (NEGATIVE); LEUKOCYTE ESTERASE,URINE NEGATIVE (NEGATIVE); NITRITE,URINE NEGATIVE (NEGATIVE); OCCULT BLOOD,URINE NEGATIVE (NEGATIVE); PH,URINE 5.5 (5.0-8.0); PROTEIN,URINE TRACE mg/dL (NEGATIVE); UROBILINOGEN,URINE 0.2 EU/dL (<2.0)
[2023-10-16 13:43] LABS: BACTERIA,URINE RARE (NEGATIVE); EPITHELIAL CELLS,URINE OCCASIONAL (NONE-FEW); HYALINE CASTS,URINE 0-2 (0-2/LPF); RBC,URINE 0-1 (0-2/HPF); WBC,URINE 0-2 (0-5/HPF)
[2023-10-16] MEDS ORDERED: Morphine 4 MG/ML Syringe IVPUSH STA (14:09)
[2023-10-16] MEDS ORDERED: Morphine 2 MG/ML SYRINGE IVPUSH STA (14:09)
[2023-10-16] MEDS ORDERED: Prochlorperazine 10 MG/2 ML SDV IVPUSH STA (14:11)
[2023-10-16] MEDS ORDERED: Naloxone 0.4 MG/ML SDV ONE (15:03)
== END 2023-10-16 19:21 ==
LOC: MW.ED 11:25
DX: K40.30 Unilateral inguinal hernia, with obstruction, without gangrene, not specified as recurrent (principal); K56.609 Unspecified intestinal obstruction, unspecified as to partial versus complete obstruction; N18.4 Chronic kidney disease, stage 4 (severe); I42.8 Other cardiomyopathies; I10 Essential (primary) hypertension; E78.00 Pure hypercholesterolemia, unspecified; K21.9 Gastro-esophageal reflux disease without esophagitis; Z88.0 Allergy status to penicillin; Z20.822 Contact with and (suspected) exposure to COVID-19
CPT/HCPCS: 0241U; 36415; 72192; 74176; 80053; 81001; 83690; 83735; 84484; 85025; 85610; 85730; 93005; 96361; 96372; 96374; 96375; 99285; J0780; J2270; J2405; J2550; J3490; J7030; 93010; 99284

== ENCOUNTER 2023-11-25 14:54 | Emergency (ER) | payer MEDICARE, OTHER ==
[2023-11-25 15:38] LABS: BASOPHILS ABSOLUTE AUTO 0.02 K/uL (0.00-0.20); BASOPHILS PERCENT AUTO 0.3 % (0.0-1.0); EOSINOPHILS ABSOLUTE AUTO 0.05 K/uL (0.00-0.45); EOSINOPHILS PERCENT AUTO 0.9 % (0.0-6.0); HEMATOCRIT 28.5 % (37.0-47.0); HEMOGLOBIN 9.2 g/dL (12.0-16.0); IMMATURE GRAN ABSOLUTE AUTO 0.02 K/uL (0.00-0.05); IMMATURE GRAN PERCENT AUTO 0.3 % (0.0-0.4); LYMPHOCYTES ABSOLUTE AUTO 0.62 K/uL (1.00-4.80); LYMPHOCYTES PERCENT AUTO 10.8 % (24.0-44.0); MEAN CORPUSCULAR HEMOGLOBIN 27.8 pg (28.0-32.0); MEAN CORPUSCULAR HGB CONC 32.3 g/dL (32.0-36.0); MEAN CORPUSCULAR VOLUME 86.1 fL (83.0-99.0); NEUTROPHILS ABSOLUTE AUTO 4.61 K/uL (1.80-7.70); NEUTROPHILS PERCENT AUTO 80.7 % (41.0-71.0); PLATELET COUNT,PLT 216 K/uL (150-400); RED BLOOD CELL COUNT 3.31 M/uL (4.10-5.30); WHITE BLOOD CELL COUNT,WBC 5.72 K/uL (3.9-11.3)
[2023-11-25 16:12] LABS: A/G RATIO 0.9 (0.9-1.6); ALBUMIN 3.3 g/dL (3.4-5.0); BILIRUBIN TOTAL 0.7 mg/dL (0.2-1.0); CALCIUM 8.7 mg/dL (8.5-10.1); CREATININE 1.6 mg/dL (0.6-1.0); EST CRCL DRUG DOSING (CG) 25.83 mL/min; MAGNESIUM 1.6 mg/dL (1.8-2.4); POTASSIUM,K 3.9 mmol/L (3.5-5.1); PROTEIN TOTAL,TP 6.8 g/dL (6.4-8.2)
[2023-11-25 16:18] LABS: CORONAVIRUS COVID-19 NAA NEGATIVE (NEGATIVE); INFLUENZA A NAA NEGATIVE (NEGATIVE); INFLUENZA B NAA NEGATIVE (NEGATIVE)
[2023-11-25] MEDS: Furosemide 40 MG/4 ML VIAL IVPUSH ONE (16:48)
[2023-11-25] MEDS: Sodium Chloride 0.9% 2.5 ML Syringe FLUSH PRN (16:48)
[2023-11-25] MEDS: Sodium Chloride 0.9% 10 ML Syringe FLUSH PRN (16:49)
[2023-11-25] MEDS: Iopamidol 755 MG/ML 500 ML Multipack Bottle IVPUSH STA (17:10)
== END 2023-11-25 20:35 ==
LOC: MW.ED 14:54
DX: I50.9 Heart failure, unspecified (principal); N18.9 Chronic kidney disease, unspecified; D64.9 Anemia, unspecified; I10 Essential (primary) hypertension; K21.9 Gastro-esophageal reflux disease without esophagitis; E78.00 Pure hypercholesterolemia, unspecified; Z88.0 Allergy status to penicillin; Z88.8 Allergy status to other drugs, medicaments and biological substances; Z79.2 Long term (current) use of antibiotics; Z79.899 Other long term (current) drug therapy; Z90.710 Acquired absence of both cervix and uterus
CPT/HCPCS: 0240U; 36415; 71045; 71275; 80053; 83735; 83880; 84484; 85025; 85379; 93005; 96374; 99285; J1940; J3490; Q9967; 93010